=== PATIENT | male | born 1980 | race African-American/Black ===

== ENCOUNTER 2016-10-18 10:04 | Emergency (ER) | payer MEDICAID ==
[~2016-10-18] VITALS: Ht 185.4 cm; Wt 111.1 kg
[~2016-10-18 10:04] MED LIST: ACETAMINOPHEN-1 EAC1 ORAL; AUGMENTIN 875-1 EAC1 ORAL; IBUPROFEN600 MG ORAL; NORCO 10/3251 EA ORAL
--- NOTE | 2016-10-18 10:32 | Emergency Room Report ---
History of Present Illness General Chief Complaint: Vomiting Source: Patient Present Illness HPI Patient had a headache yesterday. Some Motrin taken with some relief. Also a barbecue and some potatoes salad and macaroni. Today he ate [employer] in the morning and then started having vomiting. He is not vomiting blood. Denies any pain at this time. Concerned about his heart and also about possible diabetes. Has had HTN in past but not treated recently. No know no renal problems. No dysuria. No extremity pain. Headache is better. Allergies: Coded Allergies: No Known Allergies (Unverified , 02/19/14) Patient History Past Medical History: see triage record Social History: Reports: smoking Social History Narrative not working Reviewed Nursing Documentation: PMH: Agreed, PSxH: Agreed Nursing Documentation-PMH Past Medical History: No History, Except For Hx Hypertension: Yes Review of Systems All Other Systems: negative except mentioned in HPI Physical Exam Vital Signs Date Time Temp Pulse Resp B/P Pulse Ox O2 Delivery O2 Flow Rate FiO2 10/18/16 10:14 97.9 88 14 134/92 97 Room Air Sp02 EP Interpretation: reviewed, normal General Appearance: well appearing, no apparent distress, GCS 15 Head: normocephalic Eyes: bilateral eye PERRL, bilateral eye normal inspection ENT: moist mucus membranes Neck: supple Respiratory: lungs clear, normal breath sounds Cardiovascular #1: regular rate, rhythm Cardiovascular #2: 2+ radial (R) Gastrointestinal: normal inspection, normal bowel sounds, non tender, no mass, non-distended Musculoskeletal: back normal, gait/station normal, normal range of motion Neurologic: alert, oriented x3, pigment pumper III-XII nml as tested, motor strength/tone normal, DTRs symmetric, sensory intact, cerebellar normal, normal gait, speech normal Psychiatric: mood/affect normal Skin: normal inspection, warm/dry Medical Decision Making Diagnostic Impression: Primary Impression: Vomiting Qualified Codes: R11.2 - Nausea with vomiting, unspecified Additional Impressions: Renal insufficiency Hypertension Qualified Codes: I10 - Essential (primary) hypertension ER Course Patient presents with vomiting after headache yesterday. Ddx; ACS, AMI, food poisoning, electrolyte abnormalities, viral process. Labs, EKG, UA indicated. IV ordered then refused by patient. Oral zofran given. Labs with renal insufficiency. EKG and CXR c/w LVH and inc cor. Improved with treatment and tolerating PO fluids. Non-compliant with BP meds. Discussed need for f/u for repeat eval of renal function and check BP. Patient stable for outpatient observation and treatment. Laboratory Tests Test 10/18/16 10:35 White Blood Count 6.2 K/UL (4.8-10.8) Red Blood Count 5.42 M/UL (4.70-6.10) Hemoglobin 15.4 G/DL (14.2-18.0) Hematocrit 45.3 % (42.0-52.0) Mean Corpuscular Volume 84 FL (80-99) Mean Corpuscular Hemoglobin 28.4 PG (27.0-31.0) Mean Corpuscular Hemoglobin Concent 34.0 G/DL (32.0-36.0) Red Cell Distribution Width 13.3 % (11.6-14.8) Platelet Count 202 K/UL (150-450) Mean Platelet Volume 9.8 FL (6.5-10.1) Neutrophils (%) (Auto) 51.8 % (45.0-75.0) Lymphocytes (%) (Auto) 37.9 % (20.0-45.0) Monocytes (%) (Auto) 6.5 % (1.0-10.0) Eosinophils (%) (Auto) 2.5 % (0.0-3.0) Basophils (%) (Auto) 1.4 % (0.0-2.0) Sodium Level 140 mEQ/L (135-145) Potassium Level 3.5 mEQ/L (3.4-4.9) Chloride Level 98 mEQ/L (98-107) Carbon Dioxide Level 26 mEQ/L (20-30) Anion Gap 16 (5-15) H Blood Urea Nitrogen 21 mg/dL (7-23) Creatinine 2.7 mg/dL (0.7-1.2) H Estimate Glomerular Filtration Rate 32.7 mL/min (>60) Glucose Level 101 mg/dL (74-106) Calcium Level 9.5 mg/dL (8.6-10.2) Total Bilirubin 0.4 mg/dL (0.0-1.2) Aspartate Amino Transferase (AST) 18 U/L (5-40) Alanine Aminotransferase (ALT) 11 U/L (3-41) Alkaline Phosphatase 72 U/L (40-129) Total Creatine Kinase 297 U/L (38-174) H Troponin I < 0.30 ng/mL (<=0.30) Total Protein 7.6 g/dL (6.6-8.7) Albumin 3.9 g/dL (3.5-5.2) Globulin 3.7 g/dL Albumin/Globulin Ratio 1.0 (1.0-2.7) EKG Diagnostic Results Rate: normal Rhythm: NSR ST Segments: other - LVH Rhythm Strip Diag. Results EP Interpretation: yes Rhythm: NSR, no PVC's, no ectopy Chest X-Ray Diagnostic Results EP Interpretation: Yes Findings: no consolidation, no effusion, no pneumothorax, no acute cardiopulmonary disease Number of Views: 1 Last Vital Signs Date Time Temp Pulse Resp B/P Pulse Ox O2 Delivery O2 Flow Rate FiO2 10/18/16 13:19 87 18 160/98 96 Room Air 10/18/16 11:30 98.0 Status: improved Disposition: HOME, SELF-CARE Condition: Improved Scripts Lisinopril (LISINOPRIL*) 20 Mg Tablet 20 MG ORAL DAILY, #30 TAB Prov: Jitendra Main M.D. 10/18/16 Ondansetron Odt* (ZOFRAN ODT*) 4 Mg Tab.rapdis 4 MG ORAL Q8HR Y for Nausea & Vomiting, #6 TAB 0 Refills Prov: Jitendra Main M.D. 10/18/16 Jitendra Main M.D. October 18, 2016 10:32
[2016-10-18 10:51] LABS: BASOPHILS % (AUTO) 1.4 % (0.0-2.0); EOSINOPHILS % (AUTO) 2.5 % (0.0-3.0); LYMPHOCYTES % (AUTO) 37.9 % (20.0-45.0); MEAN CORPUSCULAR HEMOGLOBIN 28.4 PG (27.0-31.0); MEAN CORPUSCULAR VOLUME 84 FL (80-99); MEAN PLATELET VOLUME 9.8 FL (6.5-10.1); MONOCYTES % (AUTO) 6.5 % (1.0-10.0); NEUTROPHILS % (AUTO) 51.8 % (45.0-75.0); PLATELET COUNT 202 K/UL (150-450); RED BLOOD COUNT 5.42 M/UL (4.70-6.10); RED CELL DISTRIBUTION WIDTH 13.3 % (11.6-14.8); WHITE BLOOD COUNT 6.2 K/UL (4.8-10.8)
[2016-10-18 11:05] LABS: ALANINE AMINOTRANSFERASE 11 U/L (3-41); ANION GAP 16 (5-15); ASPARTATE AMINO TRANSFERASE 18 U/L (5-40); CALCIUM 9.5 mg/dL (8.6-10.2); CARBON DIOXIDE 26 mEQ/L (20-30); CHLORIDE 98 mEQ/L (98-107); CREATININE 2.7 mg/dL (0.7-1.2); GLOMERULAR FILTRATION RATE 32.7 mL/min (>60); HEMOLYSIS 2; POTASSIUM 3.5 mEQ/L (3.4-4.9); SODIUM 140 mEQ/L (135-145); TOTAL PROTEIN 7.6 g/dL (6.6-8.7); TROPONIN I < 0.30 ng/mL (<=0.30)
[2016-10-18 11:30] VITALS: BP 158/99
[2016-10-18] MEDS ORDERED: ZOFRAN ODT4 MG ORAL (12:40)
[2016-10-18] MEDS ORDERED: LISINOPRIL20 MG ORAL (12:41)
[2016-10-18 13:19] VITALS: BP 160/98
--- NOTE | 2016-10-19 09:19 | Diagnostic Imaging Report ---
Indication: Chest Pain Comparison: None A single view chest radiograph was obtained. Findings: Cardiac silhouette is prominent. Pulmonary vascularity is appropriate. The diaphragmatic contour is smooth and costophrenic angles are sharp. No pleural effusions are identified. The bones are unremarkable. Impression: No acute findings. Prominent heart size.
--- NOTE | 2016-10-20 17:03 | Cardiology Report ---
APPROVED REPORT EKG Measurement Heart [id number] [place] [id number] Normal sinus rhythm Possible Left atrial enlargement Left ventricular hypertrophy Prolonged QT Abnormal ECG
== END 2016-10-18 13:24 | disposition home or self-care (01) ==
LOC: EMR 10:52
DX: R11.10 Vomiting, unspecified (principal); R51 Headache; N28.9 Disorder of kidney and ureter, unspecified; I10 Essential (primary) hypertension; F17.200 Nicotine dependence, unspecified, uncomplicated
CPT/HCPCS: 36415; 71010; 80053; 82550; 84484; 85025; 93005; 99284